=== PATIENT | male | born 1955 | race Hispanic/Latino ===

== ENCOUNTER → 2020-01-25 | Outpatient (CLI) | payer OTHER | END | disposition home or self-care (01) | LOC: OIH 11:17 | PROVIDERS: ATTEND Internal Medicine | DX: M19.042 Primary osteoarthritis, left hand (principal); M19.041 Primary osteoarthritis, right hand; M77.32 Calcaneal spur, left foot; M19.072 Primary osteoarthritis, left ankle and foot; M77.51 Other enthesopathy of right foot and ankle; M19.071 Primary osteoarthritis, right ankle and foot | CPT/HCPCS: 73130; 73630 ==

== ENCOUNTER 2024-12-27 05:37 | Day surgery (SDC) | payer OTHER ==
[2024-12-22 11:35] VITALS: BP 143/70; PULSE 64; RESP 18; TEMP 97.9
[2024-12-22 12:09] LABS: BASOPHILS # (AUTO) 0.05 K/uL (0.00-0.20); BASOPHILS % (AUTO) 0.8 % (0.0-5.0); EOSINOPHILS # (AUTO) 0.11 K/uL (0.00-0.70); EOSINOPHILS % (AUTO) 1.7 % (0.0-8.0); HEMATOCRIT 34.3 % (42-54); IMMATURE GRANULOCYTE ABSOLUTE 0.05 K/uL (0-1); LYMPHOCYTES # (AUTO) 1.9 K/uL (1.0-4.8); LYMPHOCYTES % (AUTO) 29.7 % (21.0-51.0); MEAN CORPUSCULAR HGB CONC 32.9 g/dL (32.0-36.0); MEAN CORPUSCULAR VOLUME 100.3 fL (79-99); MONOCYTES # (AUTO) 0.5 K/uL (0.1-1.0); NEUTROPHILS # (AUTO) 3.9 K/uL (1.8-7.7); PLATELET COUNT (AUTO) 168 K/uL (130-400); RED BLOOD CELL COUNT(AUTO) 3.42 MIL/uL (4.50-6.20); RED CELL DISTRIBUTION WIDTH 13.6 % (11.0-15.5); WHITE BLOOD COUNT (AUTO) 6.4 K/uL (4.8-10.8)
[2024-12-22 12:20] LABS: INR 1.05 (0.85-1.15); PROTHROMBIN TIME 11.7 SEC (9.6-11.6)
[2024-12-22 12:21] LABS: PARTIAL THROMBOPLASTIN TIME 31.8 SEC (26.3-35.5)
[2024-12-22 12:29] LABS: CREATININE 5.5 mg/dL (0.5-1.3); POTASSIUM 4.4 mmol/L (3.5-5.1)
--- NOTE | 2024-12-22 13:35 | EKG ---
[facility] Test Date: 2024-12-22 Test Time: 12:19:35 Pat Name: MARTA CARPENTER Department: [facility] Room: Gender: M Director Of Physical Education: [id number] : 1955 Requested By: MILA MARTIN Order Number: [id number] Reading MD: Moo Ruelas Measurements Intervals [place] Rate: 53 P: -3 NJ: 234 QRS: -18 QRSD: 102 T: 38 QT: 484 QTc: 455 Interpretive Statements Sinus rhythm Prolonged [place] interval Nonspecific STT abnormality Compared to ECG 09/11/2020 21:38:18 First degree AV block now present Atrial fibrillation no longer present ST (T wave) deviation no longer present Electronically Signed On 12-22-2024 19:48:42 ENERGY EFFICIENCY SPECIALIST by Moo Ruelas Please click the below link to view image of tracing.
[2024-12-27] VITALS (16 sets, daily range): BP systolic 129–148; BP diastolic 50–61; PULSE 50–53; RESP 12–18; TEMP 97.1–98.2
[~2024-12-27] VITALS: Ht 170.2 cm; Wt 91.8 kg
[~2024-12-27 05:37] MED LIST: AMIO200T68 PO; APIX5TAB PO; ATOR40TA69 PO; CHOL500062 PO; CLON0.1T PO; CYAN-52 PO; FURO20TA4 PO; INSU300I SQ; LANT10005 PO; LEVO100C4 PO; LOSA100T59 PO; METO-408 PO; NIFE-78 PO; ZINC220T4 PO
[2024-12-27] MEDS ORDERED: 0.9% NACL 500ML IV.SOLN 500 ML IV ONE (06:23)
[2024-12-27] MEDS: 0.9%NACL 1000ML 0 ML IV ONE (06:36)
[2024-12-27 06:45] LABS: CREATININE 5.5 mg/dL (0.5-1.3); POTASSIUM 4.3 mmol/L (3.5-5.1)
[2024-12-27] MEDS ORDERED: MIDAZOLAM HCL 1 MG/ML 2ML VIAL ONE (06:50)
[2024-12-27] MEDS ORDERED: FENTanyl CITRate PF 50 MCG/1 ML 2ML VIAL ONE ×2 (06:51→07:08)
[2024-12-27] MEDS ORDERED: rocuRONium bROMide 10MG/1ML 5ML VL ONE (06:51)
[2024-12-27] MEDS ORDERED: proPOFol 10 MG/ML 20ML VIAL IV ONE (06:51)
[2024-12-27] MEDS ORDERED: phenylEPHRINE HCL 10 MG/ML 1ML VIAL IV ONE (07:08)
[2024-12-27] MEDS ORDERED: LIDOCAINE HCL 1% MDV 50ML VIAL ONE (07:16)
[2024-12-27] MEDS ORDERED: HEParin 10,000 UNIT/10ML (1,000 UNIT/ML) VIAL ONE ×2 (07:17→07:54)
[2024-12-27] MEDS ORDERED: HEParin-NS 1,000 UNIT/500 ML 1,500 ML IV ONE (07:17)
[2024-12-27] MEDS ORDERED: LIDOCAINE HCL 1% 10 ML VIAL ONE (07:30)
[2024-12-27] MEDS ORDERED: ATROPINE 1MG SYG IVP ONE (08:22)
[2024-12-27] MEDS ORDERED: PROTamine SULFate 10 MG/ML 25ML VIAL IV ONE (09:50)
[2024-12-27] MEDS ORDERED: GLYCOPYRROLATE 0.2 MG/ML 5 ML VIAL ONE (10:02)
[2024-12-27] MEDS ORDERED: NEOSTIGMINE METHYLSULFATE 1MG/ML IV ONE (10:02)
[2024-12-27] MEDS ORDERED: SUCR1TAB PO (10:14)
[2024-12-27] MEDS ORDERED: PANT40TA55 PO (10:14)
[2024-12-27] MEDS ORDERED: acetaMINOPHEN 325 MG TAB PO PRN (10:30)
== END 2024-12-27 12:20 | disposition home or self-care (01) ==
LOC: DAH 05:37
PROVIDERS: ATTEND Student in an Organized Health Care Education/Training Program
DX: I48.0 Paroxysmal atrial fibrillation (principal); I25.5 Ischemic cardiomyopathy; E78.5 Hyperlipidemia, unspecified; I49.1 Atrial premature depolarization; I47.10 Supraventricular tachycardia, unspecified; N18.6 End stage renal disease; I12.0 Hypertensive chronic kidney disease with stage 5 chronic kidney disease or end stage renal disease; E11.22 Type 2 diabetes mellitus with diabetic chronic kidney disease; E07.9 Disorder of thyroid, unspecified; G47.33 Obstructive sleep apnea (adult) (pediatric); E66.9 Obesity, unspecified; Z99.2 Dependence on renal dialysis; Z68.32 Body mass index [BMI] 32.0-32.9, adult; Z79.01 Long term (current) use of anticoagulants; Z88.8 Allergy status to other drugs, medicaments and biological substances; Z95.1 Presence of aortocoronary bypass graft; Z79.890 Hormone replacement therapy
CPT/HCPCS: 80048 ×2; 85025; 85610; 85730; 36415 ×2; 93005; 93656; 85347 ×4; 82948; C1894 ×6; C1732 ×3; A4649 ×2; C1760 ×4; C1766; J7040; J3010 ×2; J3490 ×4; J0461; J1644 ×3; J2250; J2704; J2710; J2371; A4215; A4222; A4221; A4663; A4216; A4606; J2720; A4223 ×2; J7030